=== PATIENT | male | born 1945 | race Caucasian/White ===

== ENCOUNTER 2017-12-07 14:21 | Emergency (ER) | payer OTHER ==
[~2017-12-07] VITALS: Ht 182.9 cm; Wt 99.8 kg
[2017-12-07 14:27] VITALS: BP 130/86
--- NOTE | 2017-12-07 15:38 | ED HAND/WRIST INJURY COMPLAINT ---
History of Present Illness General Chief Complaint: Laceration Procedure Stated Complaint: LAC TO FINGER Source: patient Exam Limitations: no limitations Vital Signs & Intake/Output Vital Signs & Intake/Output Vital Signs Date Time Temp Pulse Resp B/P B/P Pulse O2 O2 Flow FiO2 Mean Ox Delivery Rate 12/07 1427 97.6 83 20 130/86 96 Room Air ED Intake and Output 12/08 0000 12/07 1200 Intake Total Output Total Balance Patient 220 lb Weight Weight Reported by Patient Measurement Method Allergies Coded Allergies: No Known Allergies (12/07/17) Triage Note: PT TO ED C/O LAC TO LEFT HAND RING FINGER FROM KNIFE, HAPPENED 1 HOUR AGO. LAST TETANUS A FEW WEEKS AGO. Triage Nurses Notes Reviewed? yes Occurred: just prior to arrival Duration: hour(s): (1), constant, continues in ED Timing: single episode today Injury Environment: home Severity: mild, moderate Severity Numbers: 6 Pain/Injury Location: Left: 4th finger. Context: laceration Method of Injury: laceration No Modifying Factors: none HPI: 72-year-old male history of hypertension, coronary artery disease since her evaluation of a laceration to his left fourth digit. Patient reports he was cutting vegetables just prior to arrival when the knife slipped causing the laceration. He reports mild pain and bleeding to the area. He is on a baby aspirin. No numbness or tingling no other injuries is up-to-date on tetanus no problems with range of motion. (Edwin Siu) Past History Travel History Traveled to [place] past 21 day No Medical History Any Pertinent Medical History? see below for history Cardiovascular: hypertension, myocardial infarction Musculoskeletal: gout Surgical History Surgical History: non-contributory Psychosocial History What is your primary language Vietnamese Tobacco Use: Quit >30 days ago ETOH Use: occasional use Illicit Drug Use: denies illicit drug use Family History Hx Contributory? No (Edwin Siu) Review of Systems Review of Systems Constitutional: Reports: no symptoms. EENTM: Reports: no symptoms. Respiratory: Reports: no symptoms. Cardiovascular: Reports: no symptoms. GI: Reports: no symptoms. Genitourinary: Reports: no symptoms. Musculoskeletal: Reports: no symptoms. Skin: Reports: see HPI (LACERATION). Neurological/Psychological: Reports: no symptoms. Hematologic/Endocrine: Reports: no symptoms. Immunologic/Allergic: Reports: no symptoms. All Other Systems: Reviewed and Negative (Edwin Siu) Physical Exam Physical Exam General Appearance: well developed/nourished, no apparent distress, alert, awake Head: atraumatic, normal appearance Eyes: Bilateral: normal appearance, EOMI. Ears, Nose, Throat: hearing grossly normal Neck: normal inspection, supple, full range of motion Cardiovascular/Respiratory: no respiratory distress Elbow Left: normal range of motion, normal inspection Elbow Right: normal range of motion, normal inspection Forearm Left: normal range of motion, normal inspection Forearm Right: normal range of motion, normal inspection Wrist Left: normal range of motion, normal inspection Wrist Right: normal range of motion, normal inspection Hand Left: normal range of motion, lacerations, evidence of injury, 4th finger, THERE IS A 1 CM LINEAR LACERATION TO THE DISTAL FINGER PAD OF THE LEFT FOURTH DIGIT. sMALL AMOUNT OF ACTIVE BLEEDING NO DAMAGE TO THE NAIL. fULL RANGE MOTION IS INTACT NEUROVASCULAR SUPPLY INTACT Hand Right: normal inspection, normal range of motion Neurologic/Tendon: normal sensation, normal motor functions, normal tendon functions, responds to pain, no evidence tendon injury, no pulse deficit Skin: intact, normal color, warm/dry (Edwin Siu) Progress Differential Diagnosis: contusion, dislocation, fracture, sprain, LACERATION, FOREIGN BODY, TENDON INJURY Plan of Care: Patient is here with a laceration to the distal segment of the left fourth digit. Small amount of bleeding is present. The laceration will require sutures. There is cleaned with sterile water and Betadine. 1% lidocaine without epi was used for local pain control. 3 5-0 nylon simple interrupted sutures used for approximately the wound patient tolerated well sterile dressing applied discussed wound care procedures in detail. Return for suture removal in 7-10 days return sooner if any concerns. Case discussed with Dr. Hahn he agrees (Edwin Siu) Departure Departure Disposition: HOME OR SELF CARE Condition: Stable Clinical Impression Primary Impression: Laceration of finger Qualifiers: Encounter type: initial encounter Finger: index finger Damage to nail status: without damage Foreign body presence: without foreign body Laterality: left Qualified Code: S61.211A - Laceration without foreign body of left index finger without damage to nail, initial encounter Referrals: Con Locke MD (PCP/Family) Additional Instructions: Keep the area clean and dry. Change dressing once daily. [place] for signs of infection like redness swelling discharge or pain. The sutures come out in 7-10 days return sooner with any concerns. Departure Forms: Customer Survey General Discharge Information (Edwin Siu) PA/EXPORT FREIGHT MANAGER Co-Sign Statement Statement: ED Attending supervision documentation- [] I saw and evaluated the patient. I have also reviewed all the pertinent lab results and diagnostic results. I agree with the findings and the plan of care as documented in the PA's/EXPORT FREIGHT MANAGER's documentation. [X] I have reviewed the ED Record and agree with the PA's/EXPORT FREIGHT MANAGER's documentation. [] Additions or exceptions (if any) to the PAs/EXPORT FREIGHT MANAGER's note and plan are summarized below: [] (Selma PERKINS,Loyd James)
== END 2017-12-07 15:00 ==
LOC: ERH 14:21
DX: S61.215A Laceration without foreign body of left ring finger without damage to nail, initial encounter (principal); W26.0XXA Contact with knife, initial encounter; Y93.G1 Activity, food preparation and clean up; Y92.000 Kitchen of unspecified non-institutional (private) residence as the place of occurrence of the external cause; I10 Essential (primary) hypertension; M10.9 Gout, unspecified; Z87.891 Personal history of nicotine dependence
CPT/HCPCS: J2001